=== PATIENT | male | born 1975 | race Caucasian/White ===

== ENCOUNTER → 2019-07-16 | Outpatient (CLI) | payer OTHER, SELFPAY ==
[2017-07-23 14:57] VITALS: BMI 34.9
--- NOTE | 2019-07-16 10:53 | EKG12_ITS ---
Test Reason : PREOP Blood Pressure : / mmHG Vent. Rate : 069 BPM Atrial Rate : 069 BPM P-R Int : 136 ms QRS Dur : 100 ms QT Int : 386 ms P-R-T Axes : 039 046 037 degrees QTc Int : 413 ms Normal sinus rhythm Normal ECG Confirmed by PERLITA VELA, WHITNEY ([id number]), medical editor TATIANA OWENS ([id number]) on 07/17/2019 8:43:42 AM Referred By: Byron Mcneill Confirmed By:WHITNEY BHAT MD
== END | disposition home or self-care (01) ==
PROVIDERS: Family Provider Family Medicine; PCP Family Medicine; Referring Provider Orthopaedic Surgery; Visit Provider Orthopaedic Surgery
DX: G47.30 Sleep apnea, unspecified (principal)
CPT/HCPCS: 93005

== ENCOUNTER → 2022-04-27 | Outpatient (CLI) | payer OTHER, SELFPAY ==
--- NOTE | 2022-04-27 | TISS_PTH ---
PATIENT: ALICIA ORONA LOC: [facility] U#:[id number] AGE/SX: 47/M ROOM: RE04/27/[address]: Dr. Jack Quiroga DDS : 1975 BED: DIS: 04/27/2022 SPEC #: [id number] RECD: 04/27/22 10:32 STATUS: JEAN WANDA #: [id number] ZEYNEP: 04/27/22 00:[address]: Jack Quiroga DEPT: SURGICAL PATHOLOGY RECD BY: Jose Weiss ENTERED: 04/27/22 10:46 SP TYPE: Tissue Bx OT DR: No Primary Care Phys Tissues: Skin of lip, NOS Procedures: Surgery Specimen Level III HEADER OPERATION: Lip biopsy PRE-OP DIAGNOSIS: Fatty tumor - mucocele TISSUE SUBMITTED: Lower lip MICROSCOPIC DIAGNOSIS Lower lip lesion, biopsy: Angiolipoma. FLORINA:jessie 04/28/2022 MICROSCOPIC DESCRIPTION Slides are reviewed. GROSS DESCRIPTION Received in fixative is one container labeled with the patient's name and designated lower lip. The specimen consists of a piece of solis mucosal tissue measuring 0.7 x 0.5 x 0.1 cm. The specimen is inked, bisected and submitted entirely in one cassette. / SJ:rg 04/27/2022 TC:1 CPT: 59655
== END | disposition home or self-care (01) ==
LOC: LABSPEC 10:35
PROVIDERS: Referring Provider Dentist Oral and Maxillofacial Surgery; Visit Provider Dentist Oral and Maxillofacial Surgery
DX: D48.1 Neoplasm of uncertain behavior of connective and other soft tissue (principal)
CPT/HCPCS: 88304; 88305

== ENCOUNTER → 2022-12-13 | Outpatient (CLI) | payer OTHER, SELFPAY ==
--- NOTE | 2022-12-13 18:20 | STRESSREP ---
Stress Test Report Exercise stress test. 47-year-old man with a history of chest pain Stress protocol: Resting EKG demonstrates normal sinus rhythm with a rate of 70 bpm resting blood pressure is 118/70 mmHg. The patient exercised according to the regular [facility] protocol for a total duration of 8 minutes attaining a maximum heart rate of 179 bpm which was 104% of maximum predicted heart rate; the maximum workload was 10.4 metabolic equivalents. At rest there were no ST or T wave changes noted to suggest ischemia and at peak exercise upsloping ST changes only were noted which did not meet the criteria for ischemia. No clinical angina was noted the test was terminated due to the target heart rate being achieved/fatigue. The peak blood pressure was 164/72 mmHg. Rate-pressure product was 29,300. Exercise stress test with no EKG criteria for ischemia at a high workload. Good functional aerobic capacity.
== END | disposition home or self-care (01) ==
LOC: PSN 12:53
PROVIDERS: PCP Family Medicine; Visit Provider Family Medicine
DX: R07.9 Chest pain, unspecified (principal)
CPT/HCPCS: 93005; 93017

== ENCOUNTER → 2023-08-03 | Outpatient (CLI) | payer OTHER, SELFPAY | END | disposition home or self-care (01) | PROVIDERS: PCP Family Medicine; Visit Provider Podiatrist | DX: L97.529 Non-pressure chronic ulcer of other part of left foot with unspecified severity (principal); L03.032 Cellulitis of left toe | CPT/HCPCS: 87070; 87075; 87077; 87186; 87205 ==

== ENCOUNTER → 2023-10-04 | Outpatient (CLI) | payer OTHER, SELFPAY ==
[2023-10-04 09:07] LABS: Bacteria 0 SEEN /hpf (None Seen); Mucous, Urine 0 SEEN /hpf (<or=2+); Red Blood Cells-Urine 0 SEEN /hpf (0-5); Squamous Epithelial Cells - UA 0 SEEN /hpf (0-5); White Blood Cells 0 SEEN /hpf (0-5)
[2023-10-04 10:14] LABS: Color, Urine Yellow (Yellow); Glucose, Dipstick Normal (Normal); Ketone-Dipstick Negative (Negative); Leukocyte Esterase-Dipstick Negative /ul (Negative); Nitrite-Dipstick Negative (Negative); Occult Blood-Urine 10 /ul (Negative); Protein-Dipstick Negative (Negative); Specific Gravity, Urine 1.015 (1.002-1.030); Urine Bilirubin Dipstick Negative (Negative); Urine Clarity Clear (Clear); Urine Urobilinogen Normal (Normal)
[2023-10-04 10:19] LABS: Absolute Lymphocyte Count 3.12 X10^3/uL (0.83-4.51); Absolute Neutrophil Count 9.1 X10^3/uL (2.0-7.7); Basophil# 0.07 X10^3/uL; Basophil% 0.5 % (0-1); Eosinophil# 0.12 X10^3/uL; Eosinophils% 0.9 % (0-5); Hematocrit 47.7 % (40-54); Hemoglobin 15.7 g/dL (13.0-16.5); Lymphocyte # 3.12 X10^3/ul (0.83-4.51); Lymphocyte % 22.8 % (19-41); Mean Corp Hgb Conc 32.9 g/dL (32-36); Mean Corpuscular Hgb 30.9 pg (27.0-32.0); Mean Corpuscular Volume 93.9 fL (80-94); Mean Platelet Vol. 9.4 fl (6.2-12.0); Monocyte# 1.07 X10^3/uL; Monocyte% 7.8 % (0-10); NRBC Flagged by Analyzer 0 % (0-5); Neutrophil # 9.11 X10^3/uL (2.7-7.7); Neutrophil % 66.6 % (47-70); Platelet Count 324 K/mm3 (150-450); RBC Distribution Width CV 12.6 % (11.6-14.6); RBC Distribution Width SD 43.8 fl (35.1-43.9); Red Blood Count 5.08 M/mm3 (4.6-6.2); White Blood Count 13.7 K/mm3 (4.4-11.0)
[2023-10-04 11:26] LABS: ALB/GLOB Ratio 0.9 RATIO (0.9-2.4); AST(SGOT) 34 U/L (15-37); Alanine Aminotransfer ALT/SGPT 39 U/L (16-61); Albumin, Serum 3.6 g/dL (3.2-5.0); Alkaline Phosphatase 74 U/L (45-117); Anion Gap 6 (5-15); BUN 14 mg/dL (7-18); BUN/Creat Ratio 15.2 RATIO (10-20); Calcium,Total 9.3 mg/dL (8.5-10.1); Chloride 106 mmol/L (98-107); Cholesterol 180 mg/dL (200); Creatinine, Serum 0.92 mg/dL (0.70-1.30); EST Glomerular Filtration Rate 93 mL/min (>60); Est Glom Filt Rate - Afr Amer 112 mL/min (>60); Glucose 104 mg/dL (74-106); High Density Lipoprotein 47 mg/dL; Potassium 3.9 mmol/L (3.5-5.1); Protein, Total 7.6 g/dL (6.4-8.2); Sodium Level 137 mmol/L (136-145); Thyroid Stim Hormone (TSH) 1.49 uIU/mL (0.358-3.74); Triglycerides 198 mg/dL; Very Low Density Lipoprotein 40 mg/dL (5-40)
[2023-10-05 12:26] LABS: Hemoglobin A1c 5.4 % (3.8-5.6)
== END | disposition home or self-care (01) ==
PROVIDERS: PCP Family Medicine; Referring Provider Family Medicine; Visit Provider Family Medicine
DX: Z00.00 Encounter for general adult medical examination without abnormal findings (principal); R07.9 Chest pain, unspecified
CPT/HCPCS: 80053; 80061; 81001; 83036; 84443; 85025

== ENCOUNTER 2024-03-16 05:18 | Day surgery (SDC) | payer OTHER, SELFPAY ==
[2024-03-16] MEDS: Lactated Ringers 1,000 ML 15 ML IV (05:51)
[2024-03-16 05:52] VITALS: BP 123/79; PULSE 71; RESP 16; TEMP 36.6; O2SAT 95; BMI 34.2
--- NOTE | 2024-03-16 06:29 | PCM.PRE.AN2 ---
ASA Classification* ASA Classification ASA Classification: 1 Assessment & Plan Anesthesia* Anesthesia Assessment Anesthesia Assessment: Discussed sedation and/or anesthesia options, risks, benefits, and alternatives with patient/parents/legal guardian/POA. Questions invited. The patient/parents/legal guardian/POA seems to understand and agrees to proceed with anesthesia plan. Reviewed the physical assessment, medical history, allergy history and patient home medications list prior to surgery/procedure/anesthetic and documented any changes. Performed airway and anesthesia risk assessments. Anesthesia Type Anesthesia Type: MAC History Source History Obtained from:: Chart Pre-Assessment Diagnosis/Proposed Procedure Planned Operative Procedure(s): COLONOSCOPY-OA Anesthesia History Anesthesia History - recreational programs director: Anesthesia History - recreational programs director Hx Hospitalization No 03/12/24 09:22 Any Problems With Anesthesia No 03/12/24 09:22 Cholinesterase deficiency No 03/12/24 09:22 You/Your Family Experience No 03/12/24 09:22 fever (hyperthermia) with Relationship Recent Exposure to Contagious No 03/16/24 05:52 Disease Does patient have nerve No 03/12/24 09:22 stimulator Patient instructed to have device shut off --Does patient have Pacemaker No 03/16/24 05:52 or ICD? When Was Last Pacemaker Check QUESTION #4 FULL TEXT: You/Your Family Experience fever (hyperthermia) with Anesthesia Any additional information?: No Last Oral Intake Last Oral intake: Last Oral Intake NPO since 02:30 03/16/24 05:52 Meds taken in AM with sips of No 03/16/24 05:52 water? Meds patient instructed to take am of surgery Any additional information?: No PONV PONV - recreational programs director: PONV - recreational programs director Female No 03/12/24 09:22 HX of Motion Sickness No 03/12/24 09:22 HX of N/V After Surgery No 03/12/24 09:22 Non-Smoker Yes 03/12/24 09:22 Duration of Surgery greater No 03/12/24 09:22 than 60 minutes Number of Risk Factors 1 03/12/24 09:22 PONV Score Low Risk 03/12/24 09:22 Any additional information?: No Height & Weight Height & Weight: Anesthesia: Height & Weight Height 6 ft 4 in 03/16/24 05:52 Weight: 127.822 kg 03/16/24 05:52 Body Mass Index (BMI) 34.2 03/16/24 05:52 Respiratory Assessment Respiratory Assessment - recreational programs director: Respiratory Tract Infection Hx - recreational programs director Hx Respiratory Tract Infection No 03/12/24 09:22 Any additional information?: No STOP Sleep Apnea STOP Sleep Apnea - recreational programs director: STOP Sleep Apnea - recreational programs director Hx Hypertension No 03/12/24 09:22 Hx Sleep Apnea Yes 03/12/24 09:22 CPAP Yes 03/12/24 09:22 BIPAP No 03/12/24 09:22 Do you snore loudly (louder than talking or can be heard Do you often feel tired/ fatigued/ sleepy during daytime? Has anyone observed you stop breathing during sleep? STOP Results Positive 03/12/24 09:22 QUESTION #5 FULL TEXT : Do you snore loudly (louder than talking or can be heard through closed doors)? 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 Specify any problems Hx of Preganancy in last 3 N/A 03/12/24 09:22 Months Nurse Filling Out Transfusion VCHRISTIN 03/12/24 09:22 & Questions: Date: 03/12/24 03/12/24 09:22 Time: 03/12/24 09:22 Patient unable to answer at this time (ie. confused, unrespo Any additional information?: No /Reproduction History /Reproductive History - recreational programs director: /Reproductive Hx- recreational programs director Hx Now Gestational Age (in weeks): EDC: Hx Hx Para Hx Section SAB Any additional information?: No Active Medications Active Medications: Current Medications Generic Name Dose Route Start Last Admin Trade Name Guilhermeq PRN Reason Stop Dose Admin Lactated Ringer's 1,000 mls @ 15 mls/hr 03/16/24 05:45 03/16/24 05:51 IV 15 mls/hr .Q48H DARSHANA Administration Anesthesia Focused Assessment* Temperature: 97.8 F Pulse Rate: 71 Blood Pressure: 123/79 Respiratory Rate: 16 Pulse Ox: 95 Airway Assessment Mouth opens: >3 cm Mallampati Score: II Teeth Condition: Intact Neck Range of motion (ROM): Full ROM Focused Labs Anesthesia Preop lab: CBC WBC 13.7 K/mm3 (4.4-11.0) H 10/04/23 09:05 RBC 5.08 M/mm3 (4.6-6.2) 10/04/23 09:05 Hgb 15.7 g/dL (13.0-16.5) 10/04/23 09:05 Hct 47.7 % (40-54) 10/04/23 09:05 Plt Count 324 K/mm3 (150-450) 10/04/23 09:05 CHEMISTRY Potassium 3.9 mmol/L (3.5-5.1) 10/04/23 09:05 Sodium 137 mmol/L (136-145) 10/04/23 09:05 BUN 14 mg/dL (7-18) 10/04/23 09:05 Creatinine 0.92 mg/dL (0.70-1.30) 10/04/23 09:05 Glucose 104 mg/dL (74-106) 10/04/23 09:05 TSH 1.49 uIU/mL (0.358-3.74) 10/04/23 09:05 COAG Review of Systems (Anesthesia) ROS Narrative System reviewed and no additional complaints, except as documented. PENDING SALE TO [facility] Medical History Wears glasses Alcohol use History of steroid therapy Arthritis Back pain Injury of head and neck Former smoker CPAP (continuous positive airway pressure) dependence Sleep apnea History of stress test EMA on CPAP EMA (obstructive sleep apnea) Seasonal allergies Knee pain Headache Shoulder pain Home Medications ?Medication ?Instructions ?Recorded ?Last Taken ?Type glucosamine-chondroitin 250 mg-200 1 tab PO DAILY 12/21/19 Unknown History mg tablet (Osteo Bi-Flex) apple cider vinegar 500 mg tablet 1,000 mg PO DAILY 02/21/24 Unknown History multivitamin 1 tab PO DAILY 02/21/24 Unknown History Allergy/AdvReac Type Severity Reaction Status Date / Time No Known Allergies Allergy Verified 03/12/24 09:15 Family History Mother Breast cancer Grandfather Prostate cancer Surgical History History of knee surgery Social History current occupational status: employed 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
[2024-03-16 06:31] VITALS: BP 123/79; PULSE 71; RESP 16; TEMP 36.6; O2SAT 95
--- NOTE | 2024-03-16 06:35 | COLBX_PTH ---
PATIENT: ALICIA ORONA LOC: EN U#:[id number] AGE/SX: 49/M ROOM: RE03/16/[address]: Dr. Florentino Lau DO : 1975 BED: DIS: 03/16/2024 SPEC #: [id number] RECD: 03/16/24 10:51 STATUS: JEAN WANDA #: [id number] ZEYNEP: 03/16/24 06:[address]: Florentino Lau DEPT: SURGICAL PATHOLOGY RECD BY: Jose Weiss ENTERED: 03/16/24 12:29 SP TYPE: COLON BX NARENDRA DR: Dr. Rashad Pascual MD Tissues: A - Ascending colon B - Transverse colon C - Sigmoid colon biopsy Procedures: Surgery Specimen Level IV HEADER OPERATION: Colonoscopy and polypectomy PRE-OP DIAGNOSIS: Screening TISSUE SUBMITTED: A- Ascending colon polyp, B- Transverse colon polyp, C- Sigmoid colon polyp MICROSCOPIC DIAGNOSIS A. Ascending colon polyp, biopsy: Benign mucosal polyp. See comment. B. Transverse colon polyp, biopsy: Fragments of tubular adenoma. C. Sigmoid colon polyp, biopsy: Hyperplastic polyp. AM/ 03/19/2024 COMMENT A. Neither hyperplastic nor adenomatous change is identified. Clinical correlation is suggested. MICROSCOPIC DESCRIPTION Slides are reviewed. GROSS DESCRIPTION A. Received in fixative is one container labeled with the patient's name and designated Ascending colon polyp. The specimen consists of one irregular fragment of light solis soft tissue that measures 0.3 x 0.3 x 0.1 cm. The specimen is totally submitted in one cassette. B. Received in fixative is one container labeled with the patient's name and designated Transverse colon polyp. The specimen consists of multiple irregular fragments of light solis soft tissue that in aggregate measure 2.0 x 0.5 x 0.1 cm. The specimen is totally submitted in one cassette. C. Received in fixative is one container labeled with the patient's name and designated Sigmoid colon polyp. The specimen consists of one irregular fragment of light solis soft tissue that measures 0.3 x 0.3 x 0.1 cm. The specimen is totally submitted in one cassette. FLORINA/ 03/16/2024 TC:5 CPT:82190s4
--- NOTE | 2024-03-16 06:44 | PCM.HP.STD ---
[facility] - General General Date of Admission: 03/16/24 Date of Service: 03/16/24 Chief Complaint: Screening colonoscopy HPI Narrative ALICIA ORONA, is a 49 M who presents today for screening colonoscopy. He has not had a colonoscopy in the past. He is not have any abdominal pain, cramping, nausea or lower GI bleeding. He does not take any medicines on a daily basis. REPLACED BY [facility] Medical History Wears glasses Alcohol use History of steroid therapy Arthritis Back pain Injury of head and neck Former smoker CPAP (continuous positive airway pressure) dependence Sleep apnea History of stress test EMA on CPAP EMA (obstructive sleep apnea) Seasonal allergies Knee pain Headache Shoulder pain Home Medications ?Medication ?Instructions ?Recorded ?Last Taken ?Type glucosamine-chondroitin 250 mg-200 1 tab PO DAILY 12/21/19 Unknown History mg tablet (Osteo Bi-Flex) apple cider vinegar 500 mg tablet 1,000 mg PO DAILY 02/21/24 Unknown History multivitamin 1 tab PO DAILY 02/21/24 Unknown History Allergy/AdvReac Type Severity Reaction Status Date / Time No Known Allergies Allergy Verified 03/12/24 09:15 Family History Mother Breast cancer Grandfather Prostate cancer Surgical History History of knee surgery Social History current occupational status: employed 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 Smoking Status: Former smoker alcohol intake: current alcohol intake frequency: holidays/special occasions only substance use type: does not use ROS Review of Systems ROS Unobtainable: other Constitutional Constitutional: Denies fatigue, fever(s), poor appetite, weight gain or weight loss ENT HEENT: Denies mouth lesions Cardiovascular Cardiovascular: Denies abdominal bloating, abdominal edema or abdominal pain Respiratory/Chest Respiratory/Chest: Denies change in mental status, change in phlegm color, chest congestion or chest tightness Gastrointestinal Gastrointestinal: Denies belching, bloating, change in bowel habits, change in stool character, chewing difficulty, coffee ground emesis, constipation, cramping, diarrhea, dyspepsia, dysphagia, early satiety, excessive flatus, fecal incontinence, heartburn, hematemesis, hematochezia, hemorrhoids, loose stools, melena, nausea, odynophagia, rectal bleeding, tenesmus, vomiting or weight changes Genitourinary Genitourinary: Denies abdominal discomfort, burning urination or itching Musculoskeletal Musculoskeletal: Reports as per HPI; Denies muscle weakness or myalgias Integumentary Integumentary: Denies jaundice Neurologic Neurologic: Denies lack of coordination or weakness Psychiatric Psychiatric: Denies confusion, depression, memory loss, mood swings, paranoia or suicidal ideation Endocrine Endocrinology: Denies systems reviewed and no addt'l complaints, except as documented Hematologic/Lymphatic Hematologic/Lymphatic: Denies anemia, easy bleeding, easy bruising or lymphadenopathy Allergic/Immunologic Allergic/Immunologic: Denies systems reviewed and no addt'l complaints, except as documented Vital Signs Vital Signs Vital Signs: 03/16/24 05:52 03/16/24 05:52 03/16/24 06:31 Temperature 97.8 F 97.8 F Temperature Source Temporal Pulse Rate 71 71 Respiratory Rate 16 16 Respiratory Pattern Normal Blood Pressure 123/79 H 123/79 H Blood Pressure Mean 93 Blood Pressure Source Monitor Blood Pressure Position Semi-Fowlers Blood Pressure Location Left Arm Pulse Ox 95 95 Oxygen Delivery Method Room Air Weight Weight: 281 lb 12.8 oz Body Mass Index (BMI) 34.2 Physical Exam Const alert General Appearance: cooperative Orientation / Consciousness: oriented to person HEENT hearing grossly normal bilaterally Head and Scalp: normal to inspection Face and Sinus: face symmetric Nose: external nose normal Mouth: oral and palatal mucosa normal Eyes conjunctivae normal General Eye: normal appearance of both eyes Neck full ROM General: normal visual inspection Lymph Lymphatic: no lymphadenopathy noted Chest inspection of chest normal and palpation of chest normal Chest: symmetrical chest wall rise Resp normal respiratory effort Effort and Inspection: able to speak in complete sentences Cardio regular rate GI non-distended Percussion: normal to percussion Rectal Exam: deferred Neuro Speech: speech normal Gait (Neuro): normal gait Assessment & Plan Assessment/Plan (1) Encounter for screening for malignant neoplasm of colon: PLAN: He was explained alternatives, risk, benefits including not withstanding bleeding, infection, sepsis, perforation, need for emergent surgery and . Have an ASA of 3.
--- NOTE | 2024-03-16 07:14 | OP.COLON_ITS ---
Patient Name: Ryan Lewis Procedure Date: 03/16/2024 6:20 AM Date of : 1975 Age: 49 Procedure: Colonoscopy Indications: Screening for colorectal malignant neoplasm Providers: Florentino Lau DO Referring MD: Rashad Pascual Medicines: Monitored Anesthesia Care Patient Profile: This is a 49 year old male. Refer to note in patient chart for documentation of history and physical. Last Colonoscopy: none. The patient's first colonoscopy is today. Complications: No immediate complications. Procedure: Pre-Anesthesia Assessment: - Prior to the procedure, a History and Physical was performed, and patient medications and allergies were reviewed. The risks and benefits of the procedure and the sedation options and risks were discussed with the patient. All questions were answered and informed consent was obtained. Patient identification and proposed procedure were verified by the physician. Mental Status Examination: alert and oriented. Airway Examination: normal oropharyngeal airway and neck mobility. CV Examination: normal. Prophylactic Antibiotics: The patient does not require prophylactic antibiotics. Prior Anticoagulants: The patient has taken no anticoagulant or antiplatelet agents. After reviewing the risks and benefits, the patient was deemed in satisfactory condition to undergo the procedure. The anesthesia plan was to use monitored anesthesia care (MAC). Immediately prior to administration of medications, the patient was re-assessed for adequacy to receive sedatives. The heart rate, respiratory rate, oxygen saturations, blood pressure, adequacy of pulmonary ventilation, and response to care were monitored throughout the procedure. The physical status of the patient was re-assessed after the procedure. After I obtained informed consent, the scope was passed under direct vision. Throughout the procedure, the patient's blood pressure, pulse, and oxygen saturations were monitored continuously. The colonoscope was introduced through the anus and advanced to the cecum, identified by appendiceal orifice and ileocecal valve. The colonoscopy was performed without difficulty. The patient tolerated the procedure well. The quality of the bowel preparation was adequate. The ileocecal valve, appendiceal orifice, and rectum were photographed. Scope In: 6:51:28 AM Scope Withdrawal Time 0 hours 14 minutes 1 second Scope Out: 7:07:57 AM Total Procedure Duration Time 0 hours 16 minutes 29 seconds Findings: The perianal and digital rectal examinations were normal. A few small-mouthed diverticula were found in the recto-sigmoid colon and sigmoid colon. Two sessile polyps were found in the sigmoid colon and ascending colon. The polyps were 5 mm in size. These polyps were removed with a jumbo cold forceps. Resection and retrieval were complete. Verification of patient identification for the specimen was done. Estimated blood loss was minimal. A 10 mm polyp was found in the transverse colon. The polyp was sessile. The polyp was removed with a cold snare. Resection and retrieval were complete. Verification of patient identification for the specimen was done. Estimated blood loss was minimal. Impression: - Diverticulosis in the recto-sigmoid colon and in the sigmoid colon. - Two 5 mm polyps in the sigmoid colon and in the ascending colon, removed with a jumbo cold forceps. Resected and retrieved. - One 10 mm polyp in the transverse colon, removed with a cold snare. Resected and retrieved. Recommendation: - Repeat colonoscopy in 5 years for surveillance. - Continue present medications. Procedure Code(s): --- Professional --- 07626, Colonoscopy, flexible; with removal of tumor(s), polyp(s), or other lesion(s) by snare technique 23632, 59, Colonoscopy, flexible; with biopsy, single or multiple CPT copyright 2021 [employer]. All rights reserved. The codes documented in this report are preliminary and upon ship washer review may be revised to meet current compliance requirements. Florentino Lau DO 03/16/2024 7:13:38 AM This report has been signed electronically. Number of Addenda: 0 Note Initiated On: 03/16/2024 6:20 AM
--- NOTE | 2024-03-16 07:14 | OP.CCLET_ITS ---
03/16/2024 Rashad Pascual [address] [place] [address] Re : Colonoscopy procedure for Ryan Lewis Dear Dr. Pascual This procedure was performed on Saturday, March 16, 2024. My impressions and recommendations are as follows: Impressions : - Diverticulosis in the recto-sigmoid colon and in the sigmoid colon. - Two 5 mm polyps in the sigmoid colon and in the ascending colon, removed with a jumbo cold forceps. Resected and retrieved. - One 10 mm polyp in the transverse colon, removed with a cold snare. Resected and retrieved. Recommendations : - Repeat colonoscopy in 5 years for surveillance. - Continue present medications. My findings are described in the full procedure note, which is enclosed. If I can be of further assistance, please feel free to contact me at . Sincerely, Florentino Lau, 03/16/2024 7:13:38 AM This report has been signed electronically.
--- NOTE | 2024-03-16 07:14 | PCM.POST.ANE ---
Anesthesia: Postop Eval I Current Vital Signs Temperature: 97.2 F Pulse Rate: 66 Blood Pressure: 106/66 Respiratory Rate: 16 Pulse Ox: 97 Oxygen Delivery Method: Room Air Assessment Airway patent: Yes Spontaneous unlabored respirations: Yes Mental status: Awake and Calm nausea: No Vomiting: No Anesthesia Complication: No Fluid Hydration Crystalloid volume administer (ml): 500 Total IV fluid infused: 500 Progress Note Anesthesia document: Postop Eval 1 completed: Yes
[2024-03-16 07:15] VITALS: BP 106/66; BP 123/79; PULSE 66; RESP 16; TEMP 36.2; O2SAT 97
[2024-03-16 07:20] VITALS: BP 106/66; BP 107/67; BP 123/79; PULSE 61; PULSE 66; RESP 16; TEMP 36.2; O2SAT 95; O2SAT 97
[2024-03-16 07:25] VITALS: BP 108/68; BP 123/79; PULSE 65; RESP 16; TEMP 36.2; O2SAT 94
[2024-03-16 07:37] VITALS: BP 123/79
--- NOTE | 2024-03-16 09:30 | PCM.POSTANE2 ---
Anesthesia Postop Eval I Sum Postop Eval Completion status Anesthesia document: Postop Eval 1 completed: Yes Anesthesia Postop Eval I Summary Anesthesia Postop Eval I Summary: Anesthesia Postop Eval I: Assessment Summary Airway patent Yes 03/16/24 07:20 [email or web address] Spontaneous unlabored Yes 03/16/24 07:20 [email or web address] respirations Mental status Awake,Calm 03/16/24 07:20 [email or web address] nausea No 03/16/24 07:20 [email or web address] Vomiting No 03/16/24 07:20 [email or web address] Anesthesia Postop Eval I: Fluid Summary Crystalloid volume administer 500 03/16/24 07:20 [email or web address] (ml) Colloids volume administered ( ml) Blood Product volume administered (ml) Total IV fluid infused 500 03/16/24 07:20 [email or web address] Anesthesia Postop Eval I: Summary Notes Anesthesia Complication No 03/16/24 07:20 [email or web address] Anesthesia Complication Comment: Post-operative progress note Anesthesia: Postop Eval II Evaluation Mental status: Awake Pain Level: 0 nausea: No Vomiting: No Complications Anesthesia Complication: No
== END 2024-03-16 07:51 | disposition home or self-care (01) ==
LOC: EN 05:19 → AC 05:20
PROVIDERS: PCP Family Medicine; Referring Provider Family Medicine; Visit Provider Internal Medicine Gastroenterology
PROC: 0DJD8ZZ Inspection of Lower Intestinal Tract, Via Natural or Artificial Opening Endoscopic (ICD-10-PCS; CPT 45378; principal; 2024-03-16 06:30)
DX: Z12.11 Encounter for screening for malignant neoplasm of colon (principal); D12.3 Benign neoplasm of transverse colon; K57.30 Diverticulosis of large intestine without perforation or abscess without bleeding; K63.5 Polyp of colon; G47.33 Obstructive sleep apnea (adult) (pediatric); Z87.891 Personal history of nicotine dependence
CPT/HCPCS: 45385; 45380; 88305; J2405